=== PATIENT | male | born 1960 | race Two or more races ===

== ENCOUNTER 2019-05-17 11:50 | Emergency (ER) | payer OTHER ==
[~2019-05-17] VITALS: Ht 167.6 cm; Wt 63.5 kg
[2019-05-17] MEDS ORDERED: FORTAMET500 MG (12:30)
[2019-05-17] MEDS ORDERED: SYNTHROID50 MCG (12:31)
[2019-05-17] MEDS ORDERED: ASPIR 8181 MG (12:31)
[2019-05-17] MEDS ORDERED: LASIX40 MG (12:31)
== END 2019-05-17 18:04 | disposition home or self-care (01) ==
LOC: ER 11:50
DX: L03.113 Cellulitis of right upper limb (principal)

== ENCOUNTER 2019-11-20 12:10 | Emergency (ER) | payer OTHER ==
[~2019-11-20] VITALS: Ht 167.6 cm; Wt 59.9 kg
[~2019-11-20 12:10] MED LIST: ASPIR 8181 MG; FORTAMET500 MG; LASIX40 MG; SYNTHROID50 MCG
[2019-11-20] MEDS ORDERED: LOPID 600MG (14:25)
[2019-11-20] MEDS ORDERED: LISINOPRIL40 MG (14:26)
== END 2019-11-20 17:16 | disposition home or self-care (01) ==
LOC: ER 12:10
DX: L03.115 Cellulitis of right lower limb (principal)

== ENCOUNTER 2020-06-18 08:03 | Emergency (ER) | payer OTHER ==
[~2020-06-18] VITALS: Ht 152.4 cm; Wt 63.5 kg
[~2020-06-18 08:03] MED LIST changes: +LISINOPRIL40 MG; +LOPID 600MG
[2020-06-18] MEDS ORDERED: HIBICLENS118 ML TOP (08:43)
[2020-06-18] MEDS ORDERED: AMOX1TAB5 PO (08:43)
[2020-06-18] MEDS ORDERED: MUPIROCIN1 G1 TOP (08:43)
== END 2020-06-18 08:49 | disposition home or self-care (01) ==
LOC: ER 08:03
DX: L03.115 Cellulitis of right lower limb (principal)

== ENCOUNTER 2021-02-24 08:06 | Emergency (ER) | payer OTHER ==
[~2021-02-24] VITALS: Ht 167.6 cm; Wt 64.0 kg
[~2021-02-24 08:06] MED LIST changes: +AMOX1TAB5 PO; +HIBICLENS118 ML TOP; +MUPIROCIN1 G1 TOP
== END 2021-02-24 09:41 | disposition home or self-care (01) ==
LOC: ER 08:06
DX: N45.4 Abscess of epididymis or testis (principal)

== ENCOUNTER 2021-09-07 08:53 | Emergency (ER) | payer OTHER ==
[~2021-09-07] VITALS: Ht 167.6 cm; Wt 66.7 kg
[2021-09-07] MEDS ORDERED: LIPITOR40 M1 (09:01)
== END 2021-09-07 15:02 | disposition home or self-care (01) ==
LOC: ER 08:53
DX: L03.116 Cellulitis of left lower limb (principal); E11.9 Type 2 diabetes mellitus without complications; I10 Essential (primary) hypertension

== ENCOUNTER 2022-07-21 08:50 | Emergency (ER) | payer OTHER ==
[~2022-07-21] VITALS: Ht 167.6 cm; Wt 66.7 kg
[~2022-07-21 08:50] MED LIST changes: +LIPITOR40 M1
[2022-07-21] MEDS ORDERED: NORFLEX100MG PO (11:31)
[2022-07-21] MEDS ORDERED: KETO10TA2 PO (11:31)
== END 2022-07-21 12:05 | disposition home or self-care (01) ==
LOC: ER 08:50 → EMR PED 08:54 → ER 08:54
DX: M54.50 Low back pain, unspecified (principal); E11.9 Type 2 diabetes mellitus without complications; Z79.84 Long term (current) use of oral hypoglycemic drugs; I10 Essential (primary) hypertension; E03.9 Hypothyroidism, unspecified

== ENCOUNTER 2022-11-29 10:49 | Emergency (ER) | payer OTHER ==
[~2022-11-29] VITALS: Ht 167.6 cm; Wt 63.5 kg
[~2022-11-29 10:49] MED LIST changes: +KETO10TA2 PO; +NORFLEX100MG PO
== END 2022-11-29 16:22 | disposition home or self-care (01) ==
LOC: ER 10:49
PROVIDERS: Emergency Medicine
DX: R42 Dizziness and giddiness (principal); F41.9 Anxiety disorder, unspecified; I10 Essential (primary) hypertension; E11.9 Type 2 diabetes mellitus without complications; Z79.84 Long term (current) use of oral hypoglycemic drugs; Z20.822 Contact with and (suspected) exposure to COVID-19

== ENCOUNTER 2022-12-13 09:40 | Emergency (ER) | payer OTHER ==
[~2022-12-13] VITALS: Ht 167.6 cm; Wt 68.0 kg
== END 2022-12-13 11:58 ==
LOC: ER 09:40
DX: L50.9 Urticaria, unspecified (principal); R21 Rash and other nonspecific skin eruption; I10 Essential (primary) hypertension; E78.49 Other hyperlipidemia; E11.9 Type 2 diabetes mellitus without complications; Z79.84 Long term (current) use of oral hypoglycemic drugs

== ENCOUNTER 2023-10-28 07:17 | Emergency (ER) | payer OTHER ==
[~2023-10-28] VITALS: Ht 167.6 cm; Wt 70.3 kg
[2023-10-28] MEDS ORDERED: ORPHENADRINE CITRATE 30 MG/ML AMPUL IM STA (08:22)
[2023-10-28] MEDS ORDERED: KETOROLAC TROMETHAMINE 60 MG VIAL IM STA (08:22)
[2023-10-28] MEDS ORDERED: ACETAMINOPHEN WITH CODEINE 1 UDTAB TABLET PO STA (08:23)
[2023-10-28] MEDS ORDERED: DEXAMETHASONE SODIUM PHOSPHATE 4 MG/ML VIAL IM STA (08:23)
[2023-10-28] MEDS ORDERED: DEXAMETHASONE SODIUM PHOSPHATE 4 MG/ML VIAL ONE (08:31)
[2023-10-28] MEDS ORDERED: ORPHENADRINE CITRATE 30 MG/ML AMPUL ONE (08:31)
[2023-10-28] MEDS ORDERED: KETOROLAC TROMETHAMINE 60 MG VIAL IM ONE (08:31)
== END 2023-10-28 08:53 | disposition home or self-care (01) ==
LOC: ER 07:19
DX: M62.830 Muscle spasm of back (principal)